=== PATIENT | female | born 1950 | race Caucasian/White ===

== ENCOUNTER → 2016-07-24 | Outpatient (CLI) | payer MEDICARE, OTHER ==
[~2016-07-24] MED LIST: AMBR10TA3 PO; CITA20TA5 PO; CLON-364 PO; CYAN1TAB29 PO; DOXY100T PO; FOLI-17 PO; GABA600T2 PO; HYDR-3240 PO; LACT10SO38 PO; MULT-717 PO; OMEP-110 PO; POTA99TA PO; PRED20TA PO; RIFA550T PO; SPIR50TA2 PO; TADA20TA33 PO; THIA100T6 PO; TIOT18CA INH
== END | disposition home or self-care (01) ==
LOC: RAD 17:17
PROVIDERS: ATTEND Nurse Practitioner
DX: M25.471 Effusion, right ankle (principal); M25.571 Pain in right ankle and joints of right foot; M79.89 Other specified soft tissue disorders; S82.431A Displaced oblique fracture of shaft of right fibula, initial encounter for closed fracture; X58.XXXA Exposure to other specified factors, initial encounter; Y93.89 Activity, other specified; Y92.89 Other specified places as the place of occurrence of the external cause; Y99.8 Other external cause status

== ENCOUNTER → 2016-09-07 | Outpatient (CLI) | payer MEDICARE, OTHER | END | disposition home or self-care (01) | LOC: CFH 12:47 | PROVIDERS: ATTEND Internal Medicine | DX: R91.1 Solitary pulmonary nodule (principal); J43.9 Emphysema, unspecified; J98.11 Atelectasis; K74.60 Unspecified cirrhosis of liver; I51.7 Cardiomegaly | CPT/HCPCS: 71250 ==

== ENCOUNTER → 2017-03-17 | Outpatient (CLI) | payer MEDICARE, OTHER ==
[~2017-03-17] MED LIST changes: -POTA99TA PO; +POTA99TA2 PO; -RIFA550T PO; +RIFA550T4 PO
== END | disposition home or self-care (01) ==
LOC: CFH 10:12
PROVIDERS: ATTEND Internal Medicine
DX: K70.30 Alcoholic cirrhosis of liver without ascites (principal)
CPT/HCPCS: 93976

== ENCOUNTER → 2017-03-24 | Outpatient (CLI) | payer MEDICARE, OTHER | END | disposition home or self-care (01) | LOC: CFH 10:34 | PROVIDERS: ATTEND Internal Medicine | DX: J43.2 Centrilobular emphysema (principal); R91.8 Other nonspecific abnormal finding of lung field; I25.10 Atherosclerotic heart disease of native coronary artery without angina pectoris; M48.54XA Collapsed vertebra, not elsewhere classified, thoracic region, initial encounter for fracture | CPT/HCPCS: 71250 ==

== ENCOUNTER → 2018-02-28 | Outpatient (CLI) | payer MEDICARE ==
[~2018-02-28] MED LIST changes: -CITA20TA5 PO; +CITA20TA6 PO; -CLON-364 PO; +CLON0.5T11 PO; -SPIR50TA2 PO; +SPIR50TA4 PO; -THIA100T6 PO; +THIA100T67 PO
== END | disposition home or self-care (01) ==
LOC: CFH 09:13
PROVIDERS: ATTEND Internal Medicine
DX: K74.60 Unspecified cirrhosis of liver (principal)
CPT/HCPCS: 76700

== ENCOUNTER 2018-10-19 14:51 | Outpatient (CLI) | payer MEDICARE ==
[~2018-10-19 14:51] MED LIST changes: -GABA600T2 PO; +GABA600T7 PO
== END 2018-10-19 23:59 | disposition home or self-care (01) ==
LOC: CFH 14:51
PROVIDERS: ATTEND Physician Assistant
DX: I08.3 Combined rheumatic disorders of mitral, aortic and tricuspid valves (principal); I27.20 Pulmonary hypertension, unspecified; J44.9 Chronic obstructive pulmonary disease, unspecified
CPT/HCPCS: 93306